=== PATIENT | female | born 1950 | race Caucasian/White ===

== ENCOUNTER 2021-08-04 19:03 | Outpatient (REF) | payer MEDICARE, SELFPAY ==
[2021-08-06 11:52] LABS: COVID-19 RT-PCR UVMMC Result Negative (Negative)
== END 2021-08-04 19:04 | disposition home or self-care (01) ==
LOC: NCHCN 19:03
PROVIDERS: Visit Provider Physician Assistant
DX: Z20.822 Contact with and (suspected) exposure to COVID-19 (principal)
CPT/HCPCS: U0003

== ENCOUNTER 2023-07-28 04:31 | Outpatient (CLI) | payer MEDICARE, SELFPAY ==
[2023-07-28 16:45] LABS: ALT 25 U/L (14-59); AST 21 U/L (15-37); Albumin 3.9 g/dL (3.4-5.0); Alkaline Phosphatase 65 U/L (46-116); Anion Gap 10.7 mmol/L (3-11); BUN 17 mg/dL (7-18); Bilirubin, Total 0.7 mg/dL (0.2-1.0); CO2 26.3 mmol/L (21.0-32.0); Calcium 8.8 mg/dL (8.5-10.1); Calculated LDL 161 mg/dL (<100); Chloride 105 mmol/L (98-107); Cholesterol 251 mg/dL (<200); Estimated GFR 60.61 (mL/min/1.73m2); Glucose 94 mg/dL (74-106); HDL Cholesterol 69 mg/dL (40-60); Potassium 4.2 mmol/L (3.5-5.1); Sodium 142 mmol/L (136-145); Total Protein 6.9 g/dL (6.4-8.2); Triglyceride 107 mg/dL (<150)
== END 2023-07-28 04:32 | disposition home or self-care (01) ==
LOC: LOS 04:31
PROVIDERS: PCP Nurse Practitioner Family; Visit Provider Nurse Practitioner Family
DX: Z00.00 Encounter for general adult medical examination without abnormal findings (principal)
CPT/HCPCS: 36415; 80053; 80061

== ENCOUNTER 2024-09-19 02:33 | Outpatient (CLI) | payer MEDICARE, SELFPAY ==
[2024-09-19 12:36] LABS: ALT 24 U/L (14-59); AST 20 U/L (15-37); Albumin 3.9 g/dL (3.4-5.0); Alkaline Phosphatase 64 U/L (46-116); Anion Gap 7.3 mmol/L (3-11); BUN 18 mg/dL (7-18); Bilirubin, Total 0.7 mg/dL (0.2-1.0); CO2 28.7 mmol/L (21.0-32.0); CREATININE 0.9 mg/dL (0.55-1.02); Calcium 9.1 mg/dL (8.5-10.1); Calculated LDL 160 mg/dL (<100); Chloride 102 mmol/L (98-107); Cholesterol 248 mg/dL (<200); Estimated GFR 67.92 (mL/min/1.73m2); Glucose 94 mg/dL (74-106); HDL Cholesterol 66 mg/dL (>or=50); Potassium 3.9 mmol/L (3.5-5.1); Sodium 138 mmol/L (136-145); Triglyceride 110 mg/dL (<150)
[2024-09-20 11:37] LABS: Measles IgG Antibody Positive (See Note)
== END 2024-09-19 02:34 | disposition home or self-care (01) ==
LOC: LOS 02:33
PROVIDERS: PCP Nurse Practitioner Family; Visit Provider Nurse Practitioner Family
DX: E78.5 Hyperlipidemia, unspecified (principal); Z00.00 Encounter for general adult medical examination without abnormal findings
CPT/HCPCS: 36415; 80053; 80061; 86765